=== PATIENT | male | born 1950 | race African-American/Black ===

== ENCOUNTER → 2016-11-03 | Outpatient (CLI) | payer MEDICARE, BC ==
[2016-03-24 01:38] VITALS: BP 126/74
[~2016-11-03] MED LIST: ASPI-630 PO; CONTRAST GIVEN MC PRN; CRESTOR20 MG PO; DOCU100C28 PO; FAMO20TA5 PO; IOHEXOL 240 MG/ML 50ML VIAL. PO ONE; IOHEXOL 300 MG/ML 75 ML VIAL IV ONE; LISI-334 PO; OMEP20TA63 PO; OXYC-327 PO; PRED50TA PO; TADA5TAB PO
[2016-11-03 10:52] LABS: CREATININE 1.1 mg/dL (0.7-1.3); GFR 80.8
--- NOTE | 2016-11-03 13:34 | RAD ---
Indication inguinal hernias. Axial images through the abdomen and pelvis were obtained. Both IV and oral contrast were administered. Approximately 75 cc of Omnipaque 300 was administered intravenously. No prior CT imaging of the abdomen or pelvis is available. The lung bases are clear. No significant inguinal hernia is seen on either side. The liver and spleen appear unremarkable. The gallbladder is grossly normal. No pancreatic abnormality is seen. The adrenal glands and kidneys appear unremarkable. No focal mass inflammatory process or acute finding in the abdomen is seen. In the pelvis occasional diverticula are seen associated with the large bowel. Active inflammation is not seen. Acute or significant finding in the pelvis is not apparent. There are some degenerative changes about the right hip. Degenerative changes are also seen in the lumbar spine. IMPRESSION: No acute or significant finding seen in the abdomen or pelvis PQRS Compliance Statement: One or more of the following individualized dose reduction techniques were utilized for this examination: 1. Automated exposure control 2. Adjustment of the mA and/or kV according to patient size 3. Use of iterative reconstruction technique
== END | disposition home or self-care (01) ==
LOC: CT 15:50
PROVIDERS: ATTEND Specialist
DX: K40.20 Bilateral inguinal hernia, without obstruction or gangrene, not specified as recurrent (principal); I10 Essential (primary) hypertension; I25.10 Atherosclerotic heart disease of native coronary artery without angina pectoris; Z79.01 Long term (current) use of anticoagulants
CPT/HCPCS: 36415; 74177; 82565; 84520; Q9966; Q9967